=== PATIENT | female | born 1980 | race Caucasian/White ===

== ENCOUNTER 2016-03-07 12:05 | Emergency (ER) | payer MEDICAID ==
[2016-03-07] MEDS ORDERED: METOCLOPRAMIDE 10 MG/2 ML VIAL ONE (13:47)
[2016-03-07] MEDS ORDERED: DIPHENHYDRAMINE 50 MG/ML VIAL ONE (13:47)
[2016-03-07] MEDS ORDERED: SODIUM CHLORIDE 0.9% 1,000 ML ONE (13:48)
[2016-03-07] MEDS ORDERED: KETOROLAC 30 MG/ML VIAL ONE (15:02)
== END 2016-03-07 15:48 | disposition home or self-care (01) ==
LOC: ER 12:05
DX: R51 Headache (principal); F17.210 Nicotine dependence, cigarettes, uncomplicated
CPT/HCPCS: 70450; 81025; 96361; 96374; 96375